=== PATIENT | female | born 1975 | race American Indian/Alaskan Native ===

== ENCOUNTER 2016-06-25 13:37 | Emergency (ER) | payer OTHER ==
[2016-06-25 13:46] VITALS: RESP 18; O2SAT 99
[2016-06-25 14:48] LABS: URINE BILIRUBIN NEGATIVE (NEGATIVE); URINE BLOOD 1+ (NEGATIVE); URINE COLOR Straw (YELLOW); URINE GLUCOSE (UA) NORMAL (Normal); URINE KETONE NEGATIVE (NEGATIVE); URINE LEUKOCYTE ESTERASE NEG Leu/uL (Negative); URINE PROTEIN NEGATIVE (NEGATIVE); URINE UROBILINOGEN NORMAL mg/dL (0.2-1.0); WBC URINE 1 /hpf (0-5)
[2016-06-25 14:57] LABS: RBC URINE 2 /hpf (0-3)
--- NOTE | 2016-06-25 15:24 | C.PDOC ---
Time Seen by Provider: 06/25/16 14:13 Chief Complaint (Nursing): Abdominal Pain Past Medical History Vital Signs: Last Vital Signs Temp 98.1 F 06/25/16 13:40 Pulse 75 06/25/16 13:40 Resp 18 06/25/16 13:40 BP 110/72 06/25/16 13:40 Pulse Ox 99 06/25/16 13:40 Family History: States: Unknown Family Hx - Social History Hx Alcohol Use: No Hx Substance Use: No - Immunization History Hx Tetanus Toxoid Vaccination: No Hx Influenza Vaccination: No Hx Pneumococcal Vaccination: No ED Course And Treatment O2 Sat by Pulse Oximetry: 99 Disposition Counseled Patient/Family Regarding: Diagnosis, Need For Followup - Disposition Referrals: [facility] [Outside] Former[facility] [Outside] Disposition Time: 15:21 Condition: GOOD Additional Instructions: Make apt at the clinic to see the Skidder Runner md Prescriptions: Naproxen [Naprosyn] 1 tab PO BID PRN #25 tab PRN Reason: Pain Instructions: Pelvic Pain (ED) - Clinical Impression Clinical Impression: Pelvic pain
--- NOTE | 2016-06-25 15:26 | C.PDOC ---
History Of Present Illness Patient is a 40 y/o female, with no significant PMHx, that presents to the ED for evaluation of intermittent non-radiating lower abdominal pain for the past 1 year. Denies taking any pain meds at home. Patient reports being seen here and at other hospital ER with similar complaints but has not followed up. Pt is unable to recall her last menstrual. Otherwise, denies any n/v/d, fever, chills , urinary symptoms, back pain, or any other associated symptoms at this time. Time Seen by Provider: 06/25/16 14:13 Chief Complaint (Nursing): Abdominal Pain History Per: Family History/Exam Limitations: no limitations Onset/Duration Of Symptoms: Days (1 year) Current Symptoms Are (Timing): Still Present Severity: Mild Location Of Pain/Discomfort: Suprapubic Radiation Of Pain To:: None Quality Of Discomfort: "Pain" Associated Symptoms: denies: Fever, Chills, Nausea, Vomiting, Diarrhea, Loss Of Appetite, Back Pain, Chest Pain, Constipation, Urinary Symptoms Exacerbating Factors: None Alleviating Factors: None Recent travel outside of the [place]: No Additional History Per: Patient Abnormal Vaginal Bleeding: No Past Medical History Reviewed: Historical Data, Nursing Documentation, Vital Signs Vital Signs: Last Vital Signs Temp 98.2 F 06/25/16 15:35 Pulse 70 06/25/16 15:35 Resp 18 06/25/16 15:35 BP 112/75 06/25/16 15:35 Pulse Ox 99 06/26/16 13:18 - Medical History PMH: No Chronic Diseases Surgical History: No Surg Hx Family History: States: No Known Family Hx - Social History Hx Alcohol Use: No Hx Substance Use: No Review Of Systems Except As Marked, All Systems Reviewed And Found Negative. Constitutional: Negative for: Fever, Chills Gastrointestinal: Positive for: Abdominal Pain. Negative for: Nausea, Vomiting , Diarrhea, Constipation Genitourinary: Negative for: Dysuria, Frequency, Hematuria, Vaginal Discharge, Vaginal Bleeding Musculoskeletal: Negative for: Back Pain Physical Exam - Physical Exam Appears: Non-toxic, No Acute Distress Skin: Normal Color, Warm, Dry Head: Atraumatic, Normacephalic Neck: Supple Chest: Tenderness Cardiovascular: Rhythm Regular, No Murmur Respiratory: Normal Breath Sounds, No Rales, No Rhonchi, No Wheezing Gastrointestinal/Abdominal: Soft, Tenderness (mild suprapubic), No Distention, No Guarding, No Rebound Back: No CVA Tenderness Extremity: Normal ROM Neurological/Psych: Oriented x3, Normal Speech, Normal Cognition ED Course And Treatment O2 Sat by Pulse Oximetry: 99 (on RA) Pulse Ox Interpretation: Normal Progress Note: Urinalysis ordered and reviewed. Patient was treated with Toradol IM. Medical Decision Making Medical Decision Making: Pt feeling better post meds UA / UCG (-) US 07/18 2 small fibriods Abd continues soft Results discussed as well as how to and need for clinic follow up for this on going problem Plan rx nsaid clinic f/u Disposition - Disposition Referrals: [facility] [Outside] [facility] [Outside] Disposition: HOME/ ROUTINE Disposition Time: 15:21 Condition: GOOD Additional Instructions: Make apt at the clinic to see the Fishing Tackle Repairer md Prescriptions: Naproxen [Naprosyn] 1 tab PO BID PRN #25 tab PRN Reason: Pain Instructions: Pelvic Pain (ED) Forms: Work Excuse - Clinical Impression Clinical Impression: Pelvic pain - Scribe Statement The provider has reviewed the documentation as recorded by the Jamiaibmeaghan Dorsey Provider Attestation: All medical record entries made by the Rose Mary were at my direction and personally dictated by me. I have reviewed the chart and agree that the record accurately reflects my personal performance of the history, physical exam, medical decision making, and the department course for this patient. I have also personally directed, reviewed, and agree with the discharge instructions and disposition.
[2016-06-25 15:44] VITALS: BP 112/75; PULSE 70; TEMP 98.2
== END 2016-06-25 15:36 | disposition home or self-care (01) ==
LOC: C.ER 13:37
DX: R10.2 Pelvic and perineal pain (principal)
CPT/HCPCS: 81001; 84703; 96372; 99285; J1885

== ENCOUNTER 2018-02-27 15:00 | Emergency (ER) | payer SELFPAY ==
[2018-02-27 17:02] LABS: BASO # 0.1 K/uL (0.0-0.2); BASO % 0.7 % (0.0-2.0); EOS # 0.1 K/uL (0.0-0.7); EOS % 0.5 % (0.0-4.0); HEMOGLOBIN 12.3 g/dL (11.0-16.0); LYMPH # 1.7 K/uL (1.0-4.3); LYMPH % 13.7 % (20.0-40.0); MEAN CELL VOLUME 89.2 fL (81.0-99.0); MEAN CORPUSCULAR HEMOGLOBIN 29.4 pg (27.0-31.0); MEAN CORPUSCULAR HGB CONC 32.9 g/dL (33.0-37.0); MEAN PLATELET VOLUME 10.3 fL (7.2-11.7); MONO # 0.8 K/uL (0.0-0.8); MONO % 6.5 % (0.0-10.0); NEUT % 78.6 % (50.0-75.0); NRBC % 0.1 % (0.0-2.0); RBC 4.17 Mil/uL (3.80-5.20); RED CELL DISTRIBUTION WIDTH 13.5 % (11.5-14.5); WHITE BLOOD COUNT 12.7 K/uL (4.8-10.8)
--- NOTE | 2018-02-27 17:02 | C.PDOC ---
History Of Present Illness 42 year old female () presents to the ED complaining of heavy vaginal bleeding that began today associated with dark blood clots and abdominal pain. Reports she used over 20 pads today. Denies any fever, chills, nausea, vomiting, diarrhea, back pain, chest pain, or any other symptoms. Denies prior surgical history. LNMP: 01/22/18. Time Seen by Provider: 02/27/18 15:52 Chief Complaint (Nursing): Female Genitourinary History Per: Patient, Family (daughter ) History/Exam Limitations: no limitations Onset/Duration Of Symptoms: Hrs Current Symptoms Are (Timing): Still Present Quality Of Discomfort: "Pain" Associated Symptoms: Urinary Symptoms (vaginal bleeding). denies: Fever, Chills, Nausea, Vomiting, Diarrhea, Back Pain, Chest Pain Abnormal Vaginal Bleeding: Yes Last Menstral Period: 01/22/18 Past Medical History Reviewed: Historical Data, Nursing Documentation, Vital Signs Vital Signs: Last Vital Signs Temp 98.0 F 02/27/18 15:37 Pulse 79 02/27/18 15:37 Resp 20 02/27/18 15:37 BP Pulse Ox 96 02/27/18 15:37 - Medical History PMH: No Chronic Diseases Surgical History: No Surg Hx Family History: States: No Known Family Hx - Social History Hx Alcohol Use: No Hx Substance Use: No - Immunization History Hx Tetanus Toxoid Vaccination: No Hx Influenza Vaccination: No Hx Pneumococcal Vaccination: No Review Of Systems Constitutional: Negative for: Fever, Chills Gastrointestinal: Positive for: Abdominal Pain. Negative for: Nausea, Vomiting, Diarrhea Genitourinary: Positive for: Vaginal Bleeding Physical Exam - Physical Exam Appears: Non-toxic, No Acute Distress Skin: Warm, Dry, No Rash Head: Atraumatic, Normacephalic Eye(s): bilateral: Conjunctiva Pale (mild ) Neck: Supple Chest: Symmetrical Cardiovascular: Rhythm Regular, No Murmur Respiratory: No Rales, No Rhonchi, No Wheezing, Other (CTA B/L) Gastrointestinal/Abdominal: Soft, Tenderness (suprapubic tenderness), No Distention, No Guarding, No Rebound Pelvic: Cervix Open (fingertip, active bleeding) Extremity: No Calf Tenderness, No Swelling Neurological/Psych: Oriented x3, Normal Speech, Normal Cognition Gait: Steady ED Course And Treatment - Laboratory Results Result Diagrams: 02/27/18 16:58 02/27/18 16:58 O2 Sat by Pulse Oximetry: 96 (RA) Pulse Ox Interpretation: Normal - CT Scan/US US transvaginal Other Rad Studies (CT/US): Read By Radiologist, Radiology Report Reviewed CT/US Interpretation: Accession No. : [id number]. Patient Name / ID : FRACISCO ENG / [id number]. Exam Date : 02/27/2018 17:23:37 ( Approved ). Study Comment : Sex / Age : F / 42Y. Creator : Adriana Tejeda MD. Dictator : Adriana Tejeda MD. Manager Analysis : Social Worker Palliative Care : Adriana Tejeda MD. Approver2 : Report Date : 02/27/2018 18:57:10. My Comment : . Date of service: 02/27/2018. Indication: vag bleeding. low ap pain. Comparison: Pelvis/transvaginal ultrasound performed 07/04/15. Technique: Real-time transabdominal pelvic ultrasound was performed. In addition a transvaginal pelvic ultrasound was necessary to better depict pelvic anatomy. Findings: The uterus measures approximately 12.8 x 7.6 x 8.1 cm. Anteverted. At least 3 probable uterine fibroids: 4.2 x 3.7 x 4.1 cm fundus, 2.3 x 1.9 x 2.0 cm mid uterus, and 1.9 x 1.8 x 1.5 cm mid uterus. The endometrium is thickened measuring approximately 1.3 cm and appears heterogeneous likely containing blood products. No evidence of intrauterine gestational sac. The right ovary measures 2.9 x 1.8 x 2.4 cm. The left ovary measures 3.1 x 2.0 x 3.1 cm. 1.0 x 0.6 x 0.9 cm follicle. Blood flow was demonstrated to both ovaries. Small pelvic free fluid. Impression: Heterogeneous thickened endometrium likely containing blood products. No evidence of intrauterine gestational sac. If indeed the patient is based on serum beta HCG values, the sonographic findings represent either: Very early IUP; embryonic demise; ectopic gestation. Follow-up with serial quantitative serum beta HCG measurements and post OBGYN follow-up as clinically indicated, since ectopic gestation cannot be excluded based only on sonographic findings. Multiple probable uterine fibroids. Small pelvic free fluid. Medical Decision Making Medical Decision Making: Plan - Bloodwork - UA - US transvaginal Preg Test was positive. [address] Meaghan Lin, likely incomplete ab., pt may get methergine, and return to ER in 2 days for rpt cbc and bchg. discuseed with patient in [place], she agrees to plan. Disposition Counseled Patient/Family Regarding: Studies Performed, Diagnosis, Need For Followup, Rx Given - Disposition Disposition: HOME/ ROUTINE Disposition Time: 19:32 Condition: GOOD Additional Instructions: Take Methergine as prescribed by mouth every 8 hours. Return to ER in 2 days for repeat blood testing - cbc and beta-hcg. Return to ER sooner for any worse abdominal pain, heavy vaginal bleeding (soaking one pad per hour), lightheaded or dizzy or any other concerns. . Prescriptions: Methylergonovine Maleate [Methergine] 0.2 mg PO Q8 #8 tablet Instructions: Miscarriage (DC) Forms: [facility] (Malaysian), General Discharge Instructions - Clinical Impression Clinical Impression: Incomplete - PA / RESTAURANT TEAM MEMBER / Resident Statement MD/DO has reviewed & agrees with the documentation as recorded. - Scribe Statement The provider has reviewed the documentation as recorded by the Scribmeaghan Alcazar All medical record entries made by the Rose Mary were at my direction and personally dictated by me. I have reviewed the chart and agree that the record accurately reflects my personal performance of the history, physical exam, medical decision making, and the department course for this patient. I have also personally directed, reviewed, and agree with the discharge instructions and disposition.
[2018-02-27 17:10] LABS: URINE BILIRUBIN NEGATIVE (NEGATIVE); URINE BLOOD 3+ (NEGATIVE); URINE CLARITY Hazy (Clear); URINE COLOR Red (YELLOW); URINE GLUCOSE (UA) NORMAL (Normal); URINE LEUKOCYTE ESTERASE TRACE Leu/uL (Negative); URINE PROTEIN 2+ mg/dL (NEGATIVE); URINE UROBILINOGEN NORMAL mg/dL (0.2-1.0)
[2018-02-27 17:16] LABS: ALB/GLOB RATIO 1.4 (1.0-2.1); ALBUMIN 4.5 g/dL (3.5-5.0); ALT/SGPT 25 U/L (9-52); AST/SGOT 25 U/L (14-36); BLOOD UREA NITROGEN 12 mg/dL (7-17); CALCIUM 9.1 mg/dl (8.6-10.4); GFR NON-AFRICAN AMERICAN > 60
[2018-02-27 17:18] LABS: INR 1.1; PROTHROMBIN TIME 11.9 SECONDS (9.7-12.2)
[2018-02-27 18:18] VITALS: RESP 16
--- NOTE | 2018-02-27 19:00 | US ---
Date of service: 02/27/2018 Indication: vag bleeding. low ap pain Comparison: Pelvis/transvaginal ultrasound performed 07/04/15 Technique: Real-time transabdominal pelvic ultrasound was performed. In addition a transvaginal pelvic ultrasound was necessary to better depict pelvic anatomy. Findings: The uterus measures approximately 12.8 x 7.6 x 8.1 cm. Anteverted. At least 3 probable uterine fibroids: 4.2 x 3.7 x 4.1 cm fundus, 2.3 x 1.9 x 2.0 cm mid uterus, and 1.9 x 1.8 x 1.5 cm mid uterus. The endometrium is thickened measuring approximately 1.3 cm and appears heterogeneous likely containing blood products. No evidence of intrauterine gestational sac. The right ovary measures 2.9 x 1.8 x 2.4 cm. The left ovary measures 3.1 x 2.0 x 3.1 cm. 1.0 x 0.6 x 0.9 cm follicle. Blood flow was demonstrated to both ovaries. Small pelvic free fluid. Impression: Heterogeneous thickened endometrium likely containing blood products. No evidence of intrauterine gestational sac. If indeed the patient is based on serum beta HCG values, the sonographic findings represent either: Very early IUP; embryonic demise; ectopic gestation. Follow-up with serial quantitative serum beta HCG measurements and post OBGYN follow-up as clinically indicated, since ectopic gestation cannot be excluded based only on sonographic findings. Multiple probable uterine fibroids. Small pelvic free fluid.
[2018-02-27 19:42] VITALS: BP 105/62; PULSE 96; TEMP 98.4; O2SAT 100
== END 2018-02-27 19:41 | disposition home or self-care (01) ==
LOC: C.ER 15:00
DX: O03.4 Incomplete spontaneous abortion without complication (principal)

== ENCOUNTER 2018-03-01 13:38 | Emergency (ER) | payer SELFPAY ==
--- NOTE | 2018-03-01 15:11 | C.PDOC ---
History Of Present Illness 42 y/o female, who was seen here 2 days ago, diagnosed with incomplete miscarriage and is on Methergine, was advised to return to ED for repeat Beta HCG and CBC. Patient is complaining of LLQ pain but no nausea or vomiting. Patient states she has some vaginal spotting but no urinary symptoms. Time Seen by Provider: 03/01/18 14:28 Chief Complaint (Nursing): Abdominal Pain History Per: Patient History/Exam Limitations: no limitations Onset/Duration Of Symptoms: Days Current Symptoms Are (Timing): Still Present Past Medical History Reviewed: Historical Data, Nursing Documentation, Vital Signs Vital Signs: Last Vital Signs Temp 98.8 F 03/01/18 13:48 Pulse 84 03/01/18 13:48 Resp 18 03/01/18 13:48 BP 120/76 03/01/18 13:48 Pulse Ox 99 03/01/18 13:48 Family History: States: No Known Family Hx - Social History Hx Alcohol Use: No Hx Substance Use: No - Immunization History Hx Tetanus Toxoid Vaccination: No Hx Influenza Vaccination: No Hx Pneumococcal Vaccination: No Review Of Systems Except As Marked, All Systems Reviewed And Found Negative. Gastrointestinal: Positive for: Abdominal Pain Genitourinary: Positive for: Other (Vaginal spotting) Physical Exam - Physical Exam Appears: Non-toxic, No Acute Distress Skin: Normal Color, Warm, Dry Head: Atraumatic, Normacephalic Eye(s): bilateral: Normal Inspection, PERRL, EOMI Oral Mucosa: Moist Neck: Supple Chest: Symmetrical Cardiovascular: Rhythm Regular, No Murmur Respiratory: Normal Breath Sounds, No Rales, No Rhonchi, No Wheezing Gastrointestinal/Abdominal: Tenderness (in LLQ), No Guarding, No Rebound Extremity: Bilateral: Atraumatic, Normal Color And Temperature, Normal ROM Neurological/Psych: Oriented x3, Normal Speech ED Course And Treatment - Laboratory Results Result Diagrams: 03/01/18 15:11 03/01/18 15:11 O2 Sat by Pulse Oximetry: 99 (RA) Pulse Ox Interpretation: Normal - CT Scan/US Transvaginal US Other Rad Studies (CT/US): Read By Radiologist, Radiology Report Reviewed CT/US Interpretation: Findings: The uterus measures approximately 11.3 x 7.3 x 8.5 cm. Anteverted. Numerous uterine fibroids. The 2 largest visualized fibroids: 4.7 x 4.5 x 5.0 cm intramural fundal fibroid. 2.2 x 2.0 x 2.5 cm mid left uterine fibroid. Endometrial stripe appears unremarkable, measuring approx imately 2.1 cm. The right ovary measures 3.3 x 2.5 x 2.8 cm and appears unremarkable. The left ovary measures 3.1 x 2.2 x 2.5 cm and appears unremarkable. Blood flow is noted to both ovaries. Small pelvic free fluid. Impression: Thickened heterogeneous appearance of the uterus which demonstrates vascularity and evidence of blood products. No evidence of intrauterine gestation. Differential diagnosis as on prior study. Correlate clinically. Continued follow-up as indicated. Uterine fibroids. Small pelvic free fluid. Medical Decision Making Medical Decision Making: Impression: Miscarriage Plan: --Bloodwork --Transvaginal US [id number] - discussed with DR. Lin and juan to discharge. Patient need a repeat bhcg in 48 hours to ensure beta is going to 0. Will recommend clinic or return to ER. Disposition Discussed With .: Yani Lin Counseled Patient/Family Regarding: Studies Performed, Diagnosis, Need For Followup - Disposition Referrals: [facility] [Outside] [facility] [Outside] Disposition: HOME/ ROUTINE Disposition Time: 17:29 Condition: STABLE Additional Instructions: follow up in 48 hours for repeat bhcg call your doctor or clinic to make an appointment return to ER if not continue medication at home. Instructions: Miscarriage Forms: [facility] (Haitian), General Discharge Instructions - Clinical Impression Clinical Impression: Miscarriage - Scribe Statement The provider has reviewed the documentation as recorded by the Rose Mary Leigh Provider Attestation: All medical record entries made by the Rose Mary were at my direction and personally dictated by me. I have reviewed the chart and agree that the record accurately reflects my personal performance of the history, physical exam, medical decision making, and the department course for this patient. I have also personally directed, reviewed, and agree with the discharge instructions and disposition.
[2018-03-01 15:28] LABS: BASO % 0.5 % (0.0-2.0); EOS # 0.1 K/uL (0.0-0.7); HEMOGLOBIN 10.9 g/dL (11.0-16.0); LYMPH % 26.9 % (20.0-40.0); MEAN CELL VOLUME 90.1 fL (81.0-99.0); MEAN CORPUSCULAR HEMOGLOBIN 29.8 pg (27.0-31.0); MONO # 0.6 K/uL (0.0-0.8); MONO % 8.7 % (0.0-10.0); NEUT # 4.7 K/uL (1.8-7.0); NEUT % 62.9 % (50.0-75.0); RBC 3.65 Mil/uL (3.80-5.20); RED CELL DISTRIBUTION WIDTH 13.4 % (11.5-14.5); WHITE BLOOD COUNT 7.4 K/uL (4.8-10.8)
[2018-03-01 15:42] LABS: ALB/GLOB RATIO 1.3 (1.0-2.1); ALT/SGPT 23 U/L (9-52); AST/SGOT 24 U/L (14-36); BLOOD UREA NITROGEN 11 mg/dL (7-17); GFR NON-AFRICAN AMERICAN > 60; LIPASE 131 U/L (23-300)
[2018-03-01 15:52] VITALS: RESP 16
--- NOTE | 2018-03-01 17:09 | US ---
Date of service: 03/01/2018 Indication: abd. pain Technique: A real-time transabdominal pelvic ultrasound was performed. In addition, a transvaginal pelvic ultrasound was necessary to better depict pelvic anatomy. Comparison: Pelvic ultrasound performed 02/27/18 Findings: The uterus measures approximately 11.3 x 7.3 x 8.5 cm. Anteverted. Numerous uterine fibroids. The 2 largest visualized fibroids: 4.7 x 4.5 x 5.0 cm intramural fundal fibroid. 2.2 x 2.0 x 2.5 cm mid left uterine fibroid. Endometrial stripe appears unremarkable, measuring approximately 2.1 cm. The right ovary measures 3.3 x 2.5 x 2.8 cm and appears unremarkable. The left ovary measures 3.1 x 2.2 x 2.5 cm and appears unremarkable. Blood flow is noted to both ovaries. Small pelvic free fluid. Impression: Thickened heterogeneous appearance of the uterus which demonstrates vascularity and evidence of blood products. No evidence of intrauterine gestation. Differential diagnosis as on prior study. Correlate clinically. Continued follow-up as indicated. Uterine fibroids. Small pelvic free fluid.
[2018-03-01 17:11] VITALS: O2SAT 99
[2018-03-01 17:56] VITALS: BP 109/67; PULSE 73; TEMP 99.3
== END 2018-03-01 17:53 | disposition home or self-care (01) ==
LOC: C.ER 13:38
DX: O03.9 Complete or unspecified spontaneous abortion without complication (principal)
CPT/HCPCS: 76830; 80053; 83690; 84702; 85025; 96374; 99285; J1885